=== PATIENT | female | born 1990 | race Two or more races ===

== ENCOUNTER → 2021-05-11 10:25 | Outpatient (BNVA) | payer MEDICAID, SELFPAY | PROVIDERS: Visit Provider Surgery | DX: E66.01 Morbid (severe) obesity due to excess calories (principal); Z68.42 Body mass index [BMI] 45.0-49.9, adult | CPT/HCPCS: 99202 ==

== ENCOUNTER → 2021-05-31 08:09 | Outpatient (BNVA) | payer MEDICAID, SELFPAY | PROVIDERS: Visit Provider Physician Assistant ==

== ENCOUNTER → 2021-06-16 08:15 | Outpatient (BNVA) | payer MEDICAID, SELFPAY | PROVIDERS: Visit Provider Dietitian, Registered ==

== ENCOUNTER 2022-08-12 09:24 | Emergency (ER) | payer MEDICAID, SELFPAY ==
--- NOTE | ~2022-08-12 | CT_ITS ---
EXAMINATION: NONCONTRAST HEAD CT NONCONTRAST FACIAL BONES CT INDICATION INFORMATION: Fall with facial trauma COMPARISON: None TECHNIQUE: Separate noncontrast CT examinations of the head and facial bones were performed. Coronal and sagittal images were created for each examination at the technologist workstation. DOSE LOWERING TECHNIQUES: This CT examination was performed using dose optimization techniques as appropriate, variously including the following: - Automated exposure control - Adjustment of mA and/or kV according to patient size (this includes techniques or standardized protocols for targeted exams were dose is matched to indication/reason for exam; i.e. extremities or head) - Use of iterative reconstruction technique DLP: 1020 mGy-cm FINDINGS: Head: There is no evidence of acute intracranial hemorrhage or territorial infarction. No abnormal mass-effect or midline shift is seen. Giles to white matter differentiation is well preserved. No extra-axial fluid collections are identified. The ventricles are normal in size. There is no abnormal attenuation within the brain parenchyma. The osseous structures and soft tissues are normal. The mastoid air cells are well aerated. Facial bones: No acute maxillofacial fractures are seen. The frontal, maxillary, ethmoid, and sphenoid sinuses are well aerated. The uncinate process is normal bilaterally. The infundibula and middle meati are patent. The nasal septum is midline. The mandibular condyles are well-seated in the condylar fossa. The orbits demonstrate a normal appearance bilaterally. The globes are intact, and there are no suspicious findings to suggest retrobulbar hemorrhage. CT/CT head/brain wo IV con IMPRESSION: No acute findings identified in the head or facial bones.
--- NOTE | ~2022-08-12 | CT_ITS ---
EXAMINATION: NONCONTRAST HEAD CT NONCONTRAST FACIAL BONES CT INDICATION INFORMATION: Fall with facial trauma COMPARISON: None TECHNIQUE: Separate noncontrast CT examinations of the head and facial bones were performed. Coronal and sagittal images were created for each examination at the technologist workstation. DOSE LOWERING TECHNIQUES: This CT examination was performed using dose optimization techniques as appropriate, variously including the following: - Automated exposure control - Adjustment of mA and/or kV according to patient size (this includes techniques or standardized protocols for targeted exams were dose is matched to indication/reason for exam; i.e. extremities or head) - Use of iterative reconstruction technique DLP: 1020 mGy-cm FINDINGS: Head: There is no evidence of acute intracranial hemorrhage or territorial infarction. No abnormal mass-effect or midline shift is seen. Giles to white matter differentiation is well preserved. No extra-axial fluid collections are identified. The ventricles are normal in size. There is no abnormal attenuation within the brain parenchyma. The osseous structures and soft tissues are normal. The mastoid air cells are well aerated. Facial bones: No acute maxillofacial fractures are seen. The frontal, maxillary, ethmoid, and sphenoid sinuses are well aerated. The uncinate process is normal bilaterally. The infundibula and middle meati are patent. The nasal septum is midline. The mandibular condyles are well-seated in the condylar fossa. The orbits demonstrate a normal appearance bilaterally. The globes are intact, and there are no suspicious findings to suggest retrobulbar hemorrhage. CT/CT facial bones wo IV con IMPRESSION: No acute findings identified in the head or facial bones.
[2022-08-12 09:27] VITALS: BP 137/74; PULSE 71; RESP 16; TEMP 36.2; O2SAT 97; BMI 49.1
--- NOTE | 2022-08-12 10:12 | ED.FALL ---
HPI - Fall General Chief Complaint: Fall Stated Complaint: Fall/Head inj Time Seen by Provider: 08/12/22 09:35 Source: patient Mode of arrival: ambulatory Limitations: no limitations History of Present Illness HPI Narrative: 32-year-old female with history of morbid obesity presents to the ER for evaluation of left eye pain after a slip and fall in the bathtub this morning. She states she was stepping into the bathtub when she lost her footing, slipped and hit her left side of her face on the edge of the bathtub. She did not lose consciousness. She is not on anticoagulation. She did not sustain any other injuries. She reports pain above her left eye, pain with squinting and palpation of the area. She reports some mild swelling. No ecchymosis at this time. She denies confusion, lethargy, nausea, vomiting. complaint: fall Onset (ago): minute(s) Fall from: standing Fall witnessed: no Place fall occurred: home Loss of consciousness: none Prolonged down time: no Symptoms prior to fall: none Context: tripped/slipped Location of injury: head and face Severity: moderate Severity scale (1-10): 4 Quality: dull and aching Associated symptoms (after fall): headache Related Data Home Medications Medication Instructions Recorded Confirmed No Known Home Meds 05/11/21 05/11/21 Allergies Allergy/AdvReac Type Severity Reaction Status Date / Time No Known Allergies Allergy Unverified 05/11/21 12:06 Review of Systems Review of Systems: Constitutional: No Fever, No Chills ENT/Mouth: No sore throat, No dental trauma Eyes: + Eye Pain, +Swelling, No Redness Cardiovascular: No Chest Pain, No SOB Respiratory: No Cough, No Sputum Gastrointestinal: No Nausea, No Vomiting, No abdominal Pain Musculoskeletal: No joint pain, No Myalgias Skin: No Skin Lesions, No rash Neuro: No Weakness, No Numbness, No Dizziness, + Headache Heme/Lymph: No Bruising, No Lymphadenopathy PMFSH Past Medical History Medical History (Updated 08/12/22 @ 10:15 by SHYAM Cisneros) Morbid obesity due to excess calories Surgical History (Updated 05/11/21 @ 11:43 by Cande Parr MD) No pertinent past surgical history Family History Family History (Updated 05/11/21 @ 11:08 by Rakel Koehler LPN) Mother Diabetes Father TIA (transient ischemic attack) Sister Fatty liver Brother No problems noted. Social History Social History (Updated 05/11/21 @ 11:08 by Rakel Koehler LPN) Alcohol intake: current Alcohol intake frequency: holidays/special occasions only Patient Tobacco Use Status: Never used Tobacco Advance Directives: No Advance Directives Information Provided: No Physical Exam Vital Signs: Vital Signs: Last Vital Signs Temp 97.1 F 08/12/22 09:27 Pulse 71 08/12/22 09:27 Resp 16 08/12/22 09:27 BP 137/74 08/12/22 09:27 Pulse Ox 97 08/12/22 09:27 O2 Del Method 08/12/22 09:27 BMI result Body Mass Index 49.1 Appearance: Alert. Oriented X3. No acute distress. HEENT: Normocephalic. Left supraorbital area with some mild swelling and moderate tenderness. No ecchymosis. No pain with extraocular movements. Pupils are equal round reactive to light. No blood in the tympanic membranes. Normal inspection and palpation of the nose. Neck: Normal inspection. Neck supple. Normal range of motion, no midline tenderness CVS: Normal heart rate and rhythm. Pulses normal. Respiratory: No respiratory distress. Breath sounds normal. Skin: Skin warm and dry. Normal skin color. Normal skin turgor. No rashes. Extremities: Atraumatic x4, normal range of motion Neuro: Oriented X 3. No motor deficit. No sensory deficit. Steady gait Course Course Course Narrative: 32-year-old female presents to the ER with left supraorbital pain, swelling and tenderness after slip and fall with head strike today. No LOC. No signs or symptoms of a concussion. CT scan is pending. Doubt acute fracture Reevaluation(s) Reevaluation #1: CT scans are within normal limits. Stable for discharge. Discharge Plan Discharge Clinical Impression: Contusion of orbital tissues Patient Disposition: Home, Self-Care Instructions: Contusion in Adults (ED) Additional Instructions: Your CT scans today were normal. Use ice to the left eye several times per day for the next 48 hours. Take motrin and tylenol as needed for pain Rest today. No strenuous activity. Limit screen time today Follow up with your doctor as needed Prescriptions: No Action No Known Home Meds Stand Alone Forms: Work/School Release
== END 2022-08-12 11:15 | disposition home or self-care (01) ==
PROVIDERS: Emergency Provider Emergency Medicine
DX: S05.12XA Contusion of eyeball and orbital tissues, left eye, initial encounter (principal); R51.9 Headache, unspecified; W18.2XXA Fall in (into) shower or empty bathtub, initial encounter; Y93.E1 Activity, personal bathing and showering; Y92.002 Bathroom of unspecified non-institutional (private) residence as the place of occurrence of the external cause; Y99.9 Unspecified external cause status
CPT/HCPCS: 70450; 70486; 99283; 99284

== ENCOUNTER 2023-04-20 10:09 | Outpatient (REF) | payer MEDICAID, SELFPAY ==
[2023-04-20 10:57] LABS: MANUAL DIFF FLAG NO
[2023-04-20 11:20] LABS: Basophils Percent Auto 0.2 % (0-2); Eosinophils Percent Auto 0.2 % (0-4); Hematocrit 41.3 % (37.0-47.0); Hemoglobin 13.8 g/dl (12.0-16.0); Imm Gran Abs Auto 0.02 X10*3/uL (0.00-0.03); Imm Gran Pct Auto 0.3 % (0.0-0.4); Lymphocytes Absolute Auto 0.8 X10*3/uL (1.2-4.9); Lymphocytes Percent Auto 12.7 % (20-40); Mean Corpuscular HGB Conc 33.4 g/dl (31.0-35.0); Mean Corpuscular Hemoglobin 30.8 pg (27.0-33.0); Mean Corpuscular Volume 92.2 fL (80.0-98.0); Mean Platelet Volume 9.5 fL (9.4-12.3); Monocytes Absolute Auto 0.8 X10*3/uL (0.1-1.2); Monocytes Percent Auto 11.9 % (2-11); Neutrophils Absolute Auto 4.7 x10*3/uL (2.0-8.3); Neutrophils Percent Auto 74.7 % (45-73); Platelet Count 289 X10*3/uL (160-400); Red Blood Count 4.48 X10*6/uL (4.20-5.50); Red Cell Distribution Width 11.9 % (11.0-16.0); White Blood Count 6.3 X10*3/uL (4.8-10.8)
[2023-04-20 11:38] LABS: Alanine Aminotransferase 21 U/L (0-31); Albumin Level 4.3 g/dL (3.5-5.0); Alkaline Phosphatase 74 U/L (39-117); Anion Gap 11 (12-20); Aspartate Amino Transferase 19 U/L (5-31); Bilirubin Total 1.3 mg/dL (0.0-1.0); Blood Urea Nitrogen 11 mg/dL (9-16); Calcium 9.3 mg/dL (8.4-10.2); Carbon Dioxide 26 mmol/L (22-29); Chloride 105 mmol/L (96-108); Cholesterol 255 mg/dL; Estimated Glomerular Filt Rate 56; Glucose Random 116 mg/dL (60-115); HDL Cholesterol 37 mg/dL; LDL Cholesterol Calculated 174 mg/dl; Potassium 4.4 mmol/L (3.3-5.1); Sodium 138 mmol/L (135-145); Total Protein 7.3 g/dL (6.5-8.0); Triglycerides 220 mg/dL
[2023-04-20 11:54] LABS: Thyroid Stimulating Hormone 1.24 uIU/mL (0.32-4.0)
== END 2023-04-20 10:10 | disposition home or self-care (01) ==
LOC: HO.10HDL 10:09
PROVIDERS: Visit Provider Internal Medicine
DX: Z00.01 Encounter for general adult medical examination with abnormal findings (principal); E66.01 Morbid (severe) obesity due to excess calories; F32.9 Major depressive disorder, single episode, unspecified; F41.0 Panic disorder [episodic paroxysmal anxiety]; K21.9 Gastro-esophageal reflux disease without esophagitis
CPT/HCPCS: 36415; 80053; 80061; 84443; 85025

== ENCOUNTER 2023-09-22 23:21 | Emergency (ER) | payer MEDICAID, SELFPAY ==
[2023-09-22 23:23] VITALS: BP 110/69; PULSE 67; RESP 16; TEMP 36.3; O2SAT 97; BMI 49.1
--- NOTE | 2023-09-22 23:29 | ECG_ITS ---
Test Reason : DIZZINESS Blood Pressure : / mmHG Vent. Rate : 067 BPM Atrial Rate : 067 BPM P-R Int : 126 ms QRS Dur : 088 ms QT Int : 388 ms P-R-T Axes : -22 -14 -20 degrees QTc Int : 409 ms Normal sinus rhythm RSR' or QR pattern in V1 suggests right ventricular conduction delay Low voltage QRS Nonspecific T wave abnormality Abnormal ECG No previous ECGs available Referred By: Anne Vasquez Electronically Signed By:DIONNE GARCIA MD
--- NOTE | 2023-09-22 23:36 | ED_ITS ---
HPI - Dizziness General Chief Complaint: Dizziness Stated Complaint: Dizziness Time Seen by Provider: 09/22/23 23:35 Source: patient Mode of arrival: ambulatory Limitations: no limitations History of Present Illness HPI Narrative: 33 yo female with PMH of obesity here with c/o sore throat yesterday then today didn't eat much felt run down. Went to work moving boxed and felt off and kind of dizzy. 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 She felt hot as well. No CP/SOB, no travel or procedures, not on OCPs. MD elicited complaint: lightheadedness Onset (ago): day(s) (1) Timing: gradual onset and intermittent Severity: mild Description: lightheadedness Context: change in body position History of similar symptoms: No Exacerbating factors: movement/ambulation and change in body position Relieving factors: rest Associated symptoms: malaise, weakness and other (dizziness) Related Data Home Medications Medication Instructions Recorded Confirmed No Known Home Meds 05/11/21 05/11/21 Allergies Allergy/AdvReac Type Severity Reaction Status Date / Time No Known Allergies Allergy Unverified 05/11/21 12:06 Review of Systems 2 Review of Systems: Constitutional : No Fever, No Chills, No Fatigue, pos flashes ENT/Mouth : pos sore throat, No Rhinorrhea Eyes: No Eye Pain, No Swelling, No Redness Cardiovascular : No Chest Pain, No SOB, No Dyspnea on Exertion Respiratory : No Cough, No Sputum Gastrointestinal : No Nausea, No Vomiting, No Diarrhea, No abdominal Pain Genitourinary : No Dysuria, No Urinary Frequency, No Hematuria, Musculoskeletal : No joint pain, No Myalgias, No Joint Swelling Skin : No Skin Lesions, No rash Neuro : No Weakness, No Numbness, pos Dizziness, no Headache Psych : No Anxiety/Panic, No Depression All other systems reviewed and are negative [facility] Past Medical History Source: old records reviewed Medical History Morbid obesity due to excess calories Surgical History No pertinent past surgical history Family History Family History (Updated 05/11/21 @ 11:08 by Rakel Koehler LPN) Mother Diabetes Father TIA (transient ischemic attack) Sister Fatty liver Brother No problems noted. Social History Social History Alcohol intake: current Alcohol intake frequency: does not drink Patient Tobacco Use Status: Never used Tobacco Smoked in Last 30 Days: No Use of substances other than those prescribed or required for medical reasons: No Advance Directives: No Advance Directives Information Provided: No Patient : No Physical Exam 2 Vital Signs: Vital Signs: Last Vital Signs Temp 97.3 F 09/22/23 23:23 Pulse 83 09/23/23 00:31 Resp 16 09/22/23 23:23 BP 126/83 09/23/23 00:31 Pulse Ox 97 09/22/23 23:23 O2 Del Method Room Air 09/22/23 23:23 BMI result Body Mass Index 49.1 Appearance: Alert. Oriented X3. No acute distress. Eyes: Pupils equal, round and reactive to light. ENT: Pharynx mild erythema no exudates, normal voice, no stridor, no drooling. Neck: Normal inspection. Neck supple. CVS: Normal heart rate and rhythm. Pulses normal. Respiratory: No respiratory distress. Breath sounds normal. Abdomen: Soft and nontender. Skin: Skin warm and dry. Normal skin color. Normal skin turgor. Extremities: No lower extremity edema. No calf ttp Neuro: Oriented X 3. No motor deficit. No sensory deficit. Course Course Course Narrative: negative ortho VS Medical Decision Making Medical Decision Making [facility] Narrative: 33 yo female with PMH of obesity here with c/o viral like illness then felt dizzy at work - no CP/SOB to suggest VTE, no GIB symptoms, normal neuro exam - doubt posterior stroke. At this time will obtain basic labs, ortho VS and EKG. Differential Diagnosis Differential Diagnoses: The differential diagnosis associated with the presentation includes viral syndrome, anemia, dehydration Admission/Observation Consideration of admission/observation: Escalation of care including admission/observation considered not toxic but stable for DC Lab Data [facility] Lab Attestation statement: I reviewed the patient's lab results. 09/23/23 00:22 09/23/23 00:22 Labs: Lab Results 09/23/23 Range/Units 00:22 WBC 7.3 (4.8-10.8) X10*3/uL RBC 4.67 (4.20-5.50) X10*6/uL Hgb 14.2 (12.0-16.0) g/dl Hct 42.0 (37.0-47.0) % MCV 89.9 (80.0-98.0) fL MCH 30.4 (27.0-33.0) pg MCHC 33.8 (31.0-35.0) g/dl RDW 11.8 (11.0-16.0) % Plt Count 311 (160-400) X10*3/uL MPV 8.8 L (9.4-12.3) fL Immature Gran % (Auto) 0.1 (0.0-0.4) % Neut % (Auto) 63.1 (45-73) % Lymph % (Auto) 26.3 (20-40) % Barry % (Auto) 9.8 (2-11) % Eos % (Auto) 0.3 (0-4) % Baso % (Auto) 0.4 (0-2) % Lymph # (Auto) 1.9 (1.2-4.9) X10*3/uL Barry # (Auto) 0.7 (0.1-1.2) X10*3/uL Eos # (Auto) 0.0 (0.0-0.4) X10*3/uL Baso # (Auto) 0.0 (0.0-0.2) X10*3/uL Abs Immat Gran (auto) 0.01 (0.00-0.03) X10*3/uL Absolute Neuts (auto) 4.6 (2.0-8.3) x10*3/uL Absolute Nucleated RBC 0.000 (0.0-0.012) X10*3/uL Nucleated RBC % (auto) 0.0 (0.0-0.2) /100WBC Sodium 139 (135-145) mmol/L Potassium 3.9 (3.3-5.1) mmol/L Chloride 105 (96-108) mmol/L Carbon Dioxide 26 (22-29) mmol/L Anion Gap 12 (12-20) BUN 12 (9-16) mg/dL Creatinine 0.93 (0.5-1.4) mg/dL Estim Creat Clear Calc 103.0 Estimated GFR > 60 Random Glucose 87 (60-115) mg/dL Calcium 9.9 D (8.4-10.2) mg/dL COVID-19 (SHERRIE) Negative (Negative) COVID-19 Clin Com See Note Influenza Type A (ENRIKE) Negative (Negative) Influenza Type B (ENRIKE) Negative (Negative) Influenza A & B Note See Note S. pyogenes GrpA ENRIKE Negative (Negative) Independent Interpretation I performed an independent interpretation of an: EKG Interpretation: Rate: 67 Rhythm: NSR [place]: left Normal P waves. Normal CARMEN. Normal QRS complex. ST T wave : no DAWIT, inverted t waves III, aVF qTC: normal prior studies: no acute ischemia The study has been interpreted contemporaneously by me. . Independent Historian Clinical information obtained from an independent historian. History obtained from or confirmed by: Spouse External Record Review External record reviewed: Inpatient record Discharge Plan Discharge Clinical Impression: Lightheadedness Patient Disposition: Home, Self-Care Instructions: Lightheadedness (ED) Additional Instructions: return for chest pain, trouble breathing, numbness, weakness or any other concerns. stay hydrated, drink plenty of fluids negative for flu, covid, strep Prescriptions: No Action No Known Home Meds Stand Alone Forms: Work/School Release
[2023-09-23 00:28] VITALS: BP 128/84; PULSE 69
[2023-09-23 00:28] LABS: MANUAL DIFF FLAG NO
[2023-09-23 00:29] VITALS: BP 116/73; PULSE 74
[2023-09-23 00:31] VITALS: BP 126/83; PULSE 83
[2023-09-23 00:31] LABS: Basophils Percent Auto 0.4 % (0-2); Eosinophils Percent Auto 0.3 % (0-4); Hemoglobin 14.2 g/dl (12.0-16.0); Imm Gran Abs Auto 0.01 X10*3/uL (0.00-0.03); Imm Gran Pct Auto 0.1 % (0.0-0.4); Lymphocytes Absolute Auto 1.9 X10*3/uL (1.2-4.9); Lymphocytes Percent Auto 26.3 % (20-40); Mean Corpuscular HGB Conc 33.8 g/dl (31.0-35.0); Mean Corpuscular Hemoglobin 30.4 pg (27.0-33.0); Mean Corpuscular Volume 89.9 fL (80.0-98.0); Mean Platelet Volume 8.8 fL (9.4-12.3); Monocytes Absolute Auto 0.7 X10*3/uL (0.1-1.2); Monocytes Percent Auto 9.8 % (2-11); Neutrophils Absolute Auto 4.6 x10*3/uL (2.0-8.3); Neutrophils Percent Auto 63.1 % (45-73); Platelet Count 311 X10*3/uL (160-400); Red Blood Count 4.67 X10*6/uL (4.20-5.50); Red Cell Distribution Width 11.8 % (11.0-16.0); White Blood Count 7.3 X10*3/uL (4.8-10.8)
[2023-09-23 00:45] LABS: COVID-19 Test Negative (Negative); IDNOW Serial# 08D9AD1C; IDNOW Serial# BCCEAD1C; Strep A Nucleic Acid Negative (Negative)
[2023-09-23 00:48] LABS: Anion Gap 12 (12-20); Blood Urea Nitrogen 12 mg/dL (9-16); Calcium 9.9 mg/dL (8.4-10.2); Carbon Dioxide 26 mmol/L (22-29); Chloride 105 mmol/L (96-108); Estimated Glomerular Filt Rate > 60; Glucose Random 87 mg/dL (60-115); IDNOW Serial# 9DB6401D; Influenza A Negative (Negative); Influenza B2 Negative (Negative); Potassium 3.9 mmol/L (3.3-5.1); Sodium 139 mmol/L (135-145)
== END 2023-09-23 01:02 | disposition home or self-care (01) ==
PROVIDERS: Emergency Provider Emergency Medicine; PCP Internal Medicine
DX: R42 Dizziness and giddiness (principal); J02.9 Acute pharyngitis, unspecified; E66.01 Morbid (severe) obesity due to excess calories; Z68.42 Body mass index [BMI] 45.0-49.9, adult; Z11.52 Encounter for screening for COVID-19
CPT/HCPCS: 36415; 80048; 85025; 87502; 87635; 87651; 93005; 99284

== ENCOUNTER → 2024-11-19 11:46 | Outpatient (BNVA) | payer MEDICAID, SELFPAY | PROVIDERS: Visit Provider Physician Assistant Surgical ==

== ENCOUNTER 2024-12-04 08:12 | Outpatient (AMB) | payer MEDICAID, SELFPAY ==
--- NOTE | 2024-12-04 11:11 | A.OFFVIS_ITS ---
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 Allergies No Known Allergies Allergy (Verified 12/04/24 11:11) Medication List - Last Reconciled 12/04/24 by Keon Jimenez MD No Known Home Meds HPI HPI TV BEHAVIORAL MODIFICATION ASSISTANT SWL BMI 50.6: Details: Start time: 11.01am, End time: 11.40am ?I spent 34 minutes speaking with the patient on the phone plus an additional 5 minutes reviewing and updating records for a total of 39 minutes HPI Comments Details: Previous weight loss efforts: exercise, vegan, self diets Wakes up: 8am, Sleeps: 11pm Breakfast: skips Lunch: 12pm (chicken nuggets, sandwich) Dinner: 6pm (tacos, steak, pasta) Snacks: 3pm (Oreos), 8pm (Oreos, chips) Exercise: none Fluids: Coffee: none, tea: none, soda: (Dr. Rawls [facility]), juice: orange juice (daily), ETOH: none PFSH Medical History (Updated 12/04/24 @ 11:13 by Keon Jimenez MD) GERD (gastroesophageal reflux disease) Morbid obesity due to excess calories Surgical History No pertinent past surgical history Family History (Updated 11/19/24 @ 11:54 by SALO Sinclair) Mother Diabetes Father TIA (transient ischemic attack) Sister Fatty liver Brother No problems noted. Maternal Grandfather Stomach cancer Social History Alcohol intake: current Alcohol intake frequency: does not drink Patient Tobacco Use Status: Never used Tobacco Telehealth Telehealth Telehealth Platform: Telephone Location of provider rendering services: practice address Location of patient: address on file Patient Identification confirmed using: Name, : Yes Telehealth method: voice only Patient verbally consented to treatment: Yes Patient verbally consented to billing insurance company: Yes Patient informed of any privacy concerns related to visit: Yes Minutes spent on Phone/Video with Pt.: 39 Assessment & Plan Assessment & Plan (1) Morbid obesity due to excess calories: Code(s): E66.01 - Morbid (severe) obesity due to excess calories Category: Medical Plan: 1.? Plan for lap sleeve gastrectomy. If diaphragmatic or ventral hernias are present at time of surgery, these will be repaired laparoscopically as well. I emphasized the importance of close follow-up, adherence to instructions and good communication. The surgery does not replace the need to change your lifestlyle which is the cause of the obesity problem. The surgery provides the motivation to try again to change your lifestyle, it reduces the appetite and make the transition to a better lifestyle easier and doubles the amount of weight you would lose compared to doing the lifestyle change without the s urgery. You will need to be on a liquid diet with protein shakes for 2 weeks before surgery to maximize weight loss and boost your nutritional status to recover better from surgery and also for the first two weeks after surgery to let the stomach heal before we introduce other foods. After the first 2 weeks we will introduce protein bars and soft foods like scrambled eggs, cottage cheese and yogurt and after the 6th week will introduce meat, fish and cooked vegetables in small amounts. Over time you should be able to eat everything in small amounts. Side effects like nausea, vomiting, heartburn or abdominal pain are not common in the practice unless you are not following in the practice. This operation requires lifetime commitment to following in our practice and communication with me. You will much less weight and experience side effects if you don?t communicate or not following in the practice. Complications are rare and in our practice is about 1/10 of the national average. However, you can develop bleeding that may require transfusion (hasn?t happened for year in the practice), you may from complications (we did not have any deaths in the practice) and infections. Infections are usually a result of breakdown in communication or not understanding or following directions correctly. They are difficult to treat, they can happen during the first 6 weeks, they may require to be in the hospital for weeks or even months, not being able to eat by mouth and you may have drains and surgeries to try and correct the issue. Other risks and complications include possible conversion to an open procedure, leaks, small bowel obstruction, blood clots, cardiac, or pulmonary complications, as halfway complications such as ulcers, insufficient weight loss and vitamin deficiencies. 2. Please buy a body composition scale and start sharing measurements with me 3. Do aerobic exercise (outside walking, or treadmill, or elliptical or stationary bike) and do 150 minutes of aerobic exercise per week, or 22 minutes per day. 4. Start the Zepbound when you get your body composition scale once a week. Use a calorie-counting sanchez to track your daily calories to create a calorie deficit with a target of consuming 6710-3679 calories per day. We discussed the potential side effects of Zepbound such as nausea, vomiting, abdominal pain, diarrhea and constipation and you will need to contact me if any of these symptoms occur or for any other new symptom you may experience. Due to elevated blood pressure the Phentermine is not indicated. 5.?It is important of avoiding and for at least 18 months postoperatively and has been discussed at the infosession. ?6. Goal is to lose at least 1.5-2lbs per week ?7. Goal to lose 10% of your weight before surgery, which is about 27lbs. Ultimate weight goal: 240lbs before surgery Orders: Orders Insulin Today E66.01 - Morbid (severe) obesity due to excess calories, K21.9 - Gastro-esophageal reflux disease without esophagitis Hemoglobin A1c Today E66.01 - Morbid (severe) obesity due to excess calories, K21.9 - Gastro-esophageal reflux disease without esophagitis H Pylori Breath Test Today E66.01 - Morbid (severe) obesity due to excess calories, K21.9 - Gastro-esophageal reflux disease without esophagitis Complete Blood Count Auto Diff Today E66.01 - Morbid (severe) obesity due to excess calories, K21.9 - Gastro-esophageal reflux disease without esophagitis IRON PROFILE Today E66.01 - Morbid (severe) obesity due to excess calories, K21.9 - Gastro-esophageal reflux disease without esophagitis Comprehensive Met. Panel Today E66.01 - Morbid (severe) obesity due to excess calories, K21.9 - Gastro-esophageal reflux disease without esophagitis Vitamin B12 and Folate Today E66.01 - Morbid (severe) obesity due to excess calories, K21.9 - Gastro-esophageal reflux disease without esophagitis C Reactive Protein Today E66.01 - Morbid (severe) obesity due to excess calories, K21.9 - Gastro-esophageal reflux disease without esophagitis Vitamin B1 Today E66.01 - Morbid (severe) obesity due to excess calories, K21.9 - Gastro-esophageal reflux disease without esophagitis TSH reflex Free T4 Today E66.01 - Morbid (severe) obesity due to excess calories, K21.9 - Gastro-esophageal reflux disease without esophagitis Ferritin Today E66.01 - Morbid (severe) obesity due to excess calories, K21.9 - Gastro-esophageal reflux disease without esophagitis Vitamin D 25-OH Total Today E66.01 - Morbid (severe) obesity due to excess calories, K21.9 - Gastro-esophageal reflux disease without esophagitis ECG 12 lead EKG Today E66.01 - Morbid (severe) obesity due to excess calories, K21.9 - Gastro-esophageal reflux disease without esophagitis Lipid Panel Today E66.01 - Morbid (severe) obesity due to excess calories, K21.9 - Gastro-esophageal reflux disease without esophagitis Zinc Today E66.01 - Morbid (severe) obesity due to excess calories, K21.9 - Gastro-esophageal reflux disease without esophagitis Vitamin A Today E66.01 - Morbid (severe) obesity due to excess calories, K21.9 - Gastro-esophageal reflux disease without esophagitis US abdomen comp w elastography Today E66.01 - Morbid (severe) obesity due to excess calories, K21.9 - Gastro-esophageal reflux disease without esophagitis XR chest 2V Today E66.01 - Morbid (severe) obesity due to excess calories, K21.9 - Gastro-esophageal reflux disease without esophagitis FL upper GI w air Today E66.01 - Morbid (severe) obesity due to excess calories, K21.9 - Gastro-esophageal reflux disease without esophagitis Referrals Behavioral Health Referral E66.01 - Morbid (severe) obesity due to excess calories, K21.9 - Gastro-esophageal reflux disease without esophagitis Nutrition/Dietitian Referral E66.01 - Morbid (severe) obesity due to excess calories, K21.9 - Gastro-esophageal reflux disease without esophagitis Medications: New tirzepatide (weight loss) (Zepbound) for 4 weeks 2.5 mg (0.5 mL) subcut QWEEK 2 mL 0RF E66.01 - Morbid (severe) obesity due to excess calories
[2024-12-04 11:18] VITALS: BMI 50.5
== END 2024-12-04 11:41 | disposition home or self-care (01) ==
LOC: HO.HBS 08:12
PROVIDERS: Visit Provider Surgery
DX: E66.01 Morbid (severe) obesity due to excess calories (principal)
CPT/HCPCS: 99203

== ENCOUNTER → 2024-12-04 08:12 | Outpatient (BNVA) | payer MEDICAID, SELFPAY | PROVIDERS: Visit Provider Surgery ==

== ENCOUNTER 2024-12-11 09:05 | Outpatient (REF) | payer MEDICAID, SELFPAY ==
--- NOTE | ~2024-12-11 | XR_ITS ---
EXAMINATION: XR CHEST 2 VIEWS HISTORY: E66.01 - Morbid (severe) obesity due to excess calories COMPARISON: There are no prior studies for comparison. FINDINGS: PA and lateral views of the chest are submitted. The lungs are expanded and clear. There is no pleural effusion, pneumothorax, or pulmonary vascular congestion. The heart is normal in size. The bones are intact. XR/XR chest 2V IMPRESSION: Normal examination of the chest. Electronically signed by: Abdirahman Flood MD 12/12/2024 07:16 AM [facility]
--- NOTE | 2024-12-11 09:14 | ECG_ITS ---
Test Reason : E66.01 Blood Pressure : */* mmHG Vent. Rate : 96 BPM Atrial Rate : 96 BPM P-R Int : 144 ms QRS Dur : 84 ms QT Int : 354 ms P-R-T Axes : 54 52 19 degrees QTcB Int : 447 ms Normal sinus rhythm Normal ECG When compared with ECG of 23-Sep-2023 00:04, QRS voltage has increased Nonspecific T wave abnormality no longer evident in Anterior leads Referred By: Keon Jimenez Electronically Signed By: ILANA VALENCIA
[2024-12-11 09:56] LABS: MANUAL DIFF FLAG NO
[2024-12-11 11:11] LABS: Basophils Percent Auto 0.4 % (0-2); Eosinophils Percent Auto 0.3 % (0-4); Hematocrit 42.7 % (37.0-47.0); Hemoglobin 14.7 g/dl (12.0-16.0); Imm Gran Abs Auto 0.03 X10*3/uL (0.00-0.03); Imm Gran Pct Auto 0.3 % (0.0-0.4); Lymphocytes Absolute Auto 1.5 X10*3/uL (1.2-4.9); Lymphocytes Percent Auto 16.7 % (20-40); Mean Corpuscular HGB Conc 34.4 g/dl (31.0-35.0); Mean Corpuscular Hemoglobin 30.6 pg (27.0-33.0); Mean Corpuscular Volume 88.8 fL (80.0-98.0); Mean Platelet Volume 9.7 fL (9.4-12.3); Monocytes Absolute Auto 0.8 X10*3/uL (0.1-1.2); Monocytes Percent Auto 8.3 % (2-11); Neutrophils Absolute Auto 6.7 x10*3/uL (2.0-8.3); Platelet Count 328 X10*3/uL (160-400); Red Blood Count 4.81 X10*6/uL (4.20-5.50); Red Cell Distribution Width 12.4 % (11.0-16.0); White Blood Count 9.1 X10*3/uL (4.8-10.8)
[2024-12-11 11:27] LABS: Estimated Average Glucose 131 mg/dL; Hemoglobin A1C 165.5512 umol/L; Hemoglobin A1c % 6.2 % (<6.0); Total Hemoglobin (HGBA1C) 3733.7155 umol/L
[2024-12-11 12:08] LABS: Ferritin 64 ng/mL (10-122); TSH reflex Free T4 0.72 uIU/mL (0.32-4.0); Vitamin D 25-OH Total 13.1 ng/mL (>30)
[2024-12-11 12:14] LABS: Alanine Aminotransferase 13 U/L (0-31); Albumin Level 4.2 g/dL (3.5-5.0); Anion Gap 15 (12-20); Aspartate Amino Transferase 24 U/L (5-31); Bilirubin Total 0.6 mg/dL (0.0-1.0); Blood Urea Nitrogen 13 mg/dL (9-16); C Reactive Protein 0.62 mg/dL (< or = 0.50); Calcium 9.1 mg/dL (8.4-10.2); Carbon Dioxide 20 mmol/L (22-29); Chloride 107 mmol/L (96-108); Cholesterol 243 mg/dL (<200); Estimated Glomerular Filt Rate > 60; Glucose Random 148 mg/dL (60-115); HDL Cholesterol 37 mg/dL (>40); Iron 51 mcg/dL (30-160); LDL Cholesterol Calculated 171 mg/dL (<100); Percent Iron Saturation 24 % (15-50); Potassium 4.1 mmol/L (3.3-5.1); Sodium 138 mmol/L (135-145); Total Iron Binding Capacity 216 mcg/dL (228-428); Total Protein 7.6 g/dL (6.5-8.0); Triglycerides 176 mg/dL (<150); Unsaturated Iron Binding 165 ug/dL
[2024-12-11 12:22] LABS: Folate 6.5 ng/mL (> or = 4.0); Vitamin B12 737 pg/mL (200-900)
[2024-12-11 12:26] LABS: Alkaline Phosphatase 79 U/L (39-117)
[2024-12-11 14:31] LABS: Insulin 38 uU/mL (2-29)
[2024-12-15 10:28] LABS: Vitamin A 45 mcg/dL (38-98)
[2024-12-20 05:48] LABS: Vitamin B1 8 nmol/L (8-30)
== END 2024-12-11 09:06 | disposition home or self-care (01) ==
LOC: HO.LAB 09:05
PROVIDERS: Visit Provider Surgery
DX: K21.9 Gastro-esophageal reflux disease without esophagitis (principal); E66.01 Morbid (severe) obesity due to excess calories; R20.0 Anesthesia of skin
CPT/HCPCS: 36415; 71046; 80053; 80061; 82306; 82607; 82728; 82746; 83036; 83525; 83540; 84425; 84443; 84590; 84630; 85025; 86140; 93005

== ENCOUNTER → 2024-12-11 10:00 | Outpatient (BNV) | payer MEDICAID, SELFPAY | PROVIDERS: Visit Provider Radiology Diagnostic Radiology | DX: E66.01 Morbid (severe) obesity due to excess calories (principal) | CPT/HCPCS: 71046 ==